=== PATIENT | male | born 1965 | race Caucasian/White ===

== ENCOUNTER 2018-05-26 08:56 | Emergency (ER) | payer BC, SELFPAY ==
[2018-05-26 09:01] VITALS: BP 176/106; PULSE 84; RESP 16; TEMP 36.7; O2SAT 97
--- NOTE | 2018-05-26 09:15 | W.ED.GENAD ---
Discharge Plan Disposition Patient Disposition: HOME Condition: Good Discharge Details Chief Complaint: EyeProblem Clinical Impression: Acute foreign body of left cornea Primary Care Provider: ANNE MARIELOCAL ED Provider: Ciro Villela Home Meds and New Rx's Prescriptions: No Action atorvastatin [Lipitor] 40 mg Tablet 40 mg PO DAILY RF: 0 metoprolol succinate [Toprol XL] 50 mg Tablet Extended Release 24 Hr 50 mg PO DAILY RF: 0 aspirin [Aspir-81] 81 mg Tablet,Delayed Release (Dr/Ec) 81 mg PO DAILY RF: 0 calcium carbonate [Calcium 600] 600 mg calcium (1,500 mg) Tablet 600 mg PO BID RF: 0 potassium 99 mg Tablet 99 mg PO DAILY RF: 0 amlodipine [Norvasc] 10 mg Tablet 10 mg PO DAILY RF: 0 metformin 1,000 mg Tablet 1,000 mg PO BID RF: 0 esomeprazole magnesium [Nexium] 40 mg Capsule,Delayed Release(Dr/Ec) 40 mg PO DAILY RF: 0 gabapentin 300 mg Capsule 300 mg PO QID RF: 0 hydrochlorothiazide 25 mg Tablet 25 mg PO DAILY RF: 0 irbesartan [Avapro] 300 mg Tablet 300 mg PO DAILY RF: 0 fenofibrate nanocrystallized [Tricor] 145 mg Tablet 145 mg PO DAILY RF: 0 ympbyjglnumc-oofm-avgnh acid [Centrum] 18-400 mg-mcg Tablet 1 tab PO QAM RF: 0 magnesium hydroxide 400 mg (170 mg) Tablet,Chewable 400 mg PO BID RF: 0 insulin glargine [Lantus Solostar U-100 Insulin] 100 unit/mL (3 mL) Insulin Pen 30 unit SUBCUT DAILY RF: 0 Discharge Instructions Instructions: Corneal Abrasion (ED) Additional Instructions: Follow-up with his [facility] eye care tomorrow or Sunday. It is best that you first call the office on Sunday morning at [phone]. Unable to get an appointment in 24-48 hours please call our care management team at [phone]. Return for increasing pain or any other concerns. Please use antibiotic ointment as provided 4 times daily to both eyes. Continue all regularly prescribed medications Medical Decision Making 52-year-old male with history of diabetes that is managed by his home care physicians in the state [facility]. 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 Foreign metallic object to the left eye 2 days ago. No evidence of significant injury to the right eye. There was left eye foreign metallic object present. Negative Yumiko sign. Patient was anesthetized, the majority of the metallic object was removed with question of residual rust ring. No significant change to vision. We will place him on antibiotic ointment bilaterally. We will ask that he follow-up [facility] for repeat evaluation tomorrow or Sunday. He will return the ED for any acute concerns. HPI General Mode of arrival: ambulatory. Date/Time Provider Initiated Documentation: 05/26/18 08:57. Limitations to Documentation: no limitations. Information obtained by: patient. History of Present Illness 52 year old M presents to the emergency department with the chief complaint of Left eye foreign object, described as moderate, Quality is described as aching, and is localized to the left and right. Patient started experiencing this day(s) and it has been constant. No relieving factors improve symptom(s), No exacerbating factors reported . Patient notes no other symptoms.. HPI Narrative: This is a 52-year-old male who lives in [facility]. He is staying at the [place] and then working in town. 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 He believes he had metallic foreign body to both eyes left greater than right 2 days ago and has had persistent predominantly left eye achy, constant, nonradiating pain. Increased clear tears. He has not had any pain with movement of the eye. No discharge. No significant change to vision; tetanus status up to date Related Data Home Medications Medication Instructions Recorded Confirmed amlodipine [Norvasc] 10 mg PO DAILY 05/26/18 05/26/18 aspirin [Aspir-81] 81 mg PO DAILY 05/26/18 05/26/18 atorvastatin [Lipitor] 40 mg PO DAILY 05/26/18 05/26/18 calcium carbonate [Calcium 600] 600 mg PO BID 05/26/18 05/26/18 esomeprazole magnesium [Nexium] 40 mg PO DAILY 05/26/18 05/26/18 fenofibrate nanocrystallized 145 mg PO DAILY 05/26/18 05/26/18 [Tricor] gabapentin 300 mg PO QID 05/26/18 05/26/18 hydrochlorothiazide 25 mg PO DAILY 05/26/18 05/26/18 insulin glargine [Lantus Solostar 30 unit SUBCUT DAILY 05/26/18 05/26/18 U-100 Insulin] irbesartan [Avapro] 300 mg PO DAILY 05/26/18 05/26/18 magnesium hydroxide 400 mg PO BID 05/26/18 05/26/18 metformin 1,000 mg PO BID 05/26/18 05/26/18 metoprolol succinate [Toprol XL] 50 mg PO DAILY 05/26/18 05/26/18 uazxcncjnyyp-ujed-wddym acid 1 tab PO QAM 05/26/18 05/26/18 [Centrum] potassium 99 mg PO DAILY 05/26/18 05/26/18 Allergies Allergy/AdvReac Type Severity Reaction Status Date / Time No Known Allergies Allergy Unverified 05/26/18 09:09 General Stated Complaint: EyeProblem CASSIE: 4 Review of Systems Review of Systems 8 systems reviewed and otherwise negative PFSH Social History Smoking/Tobacco Use Status: Never Exam Narrative Exam Narrative: GEN: awake, alert, oriented 3. Pleasant, well groomed, interactive. HEAD: Normocephalic, atraumatic ENT: Mucous membranes moist, oropharynx unremarkable, External ear exam unremarkable EYES: PERRL, EOMI. under fluorescein and slit lamp examination there is discrete question of right corneal abrasion without evidence of foreign body, no Yumiko sign. Left eye with inferotemporal foreign metallic object. Minimal corneal abrasions present, no Yumiko sign NECK: Full ROM, no FLEX, no menigismus CHEST/RESP: Nontender, clear to auscultation bilateral, no wheeze/rhonchi/rales CARDIOVASCULAR: RRR, no murmur, rub basil. 2+ Rad pulse bilateral EXT: Full ROM, no edema, no rash Neuro: Grossly normal neurologic exam, conversant, interactive. Psych: Speech fluent, thoughts congruent, affect normal Course Vital Signs Temperature 36.7 C 05/26/18 09:01 Pulse 84 05/26/18 09:01 Respiratory Rate 16 05/26/18 09:01 Blood Pressure 176/106 H 05/26/18 09:01 Pulse Oximetry 97 05/26/18 09:01 Temperature 36.7 C 05/26/18 09:01 Temperature Source Skin 05/26/18 09:01 Pulse 84 05/26/18 09:01 Respiratory Rate 16 05/26/18 09:01 Respiratory Effort Non-Labored 10/21/18 09:03 Blood Pressure 176/106 H 05/26/18 09:01 Pulse Oximetry 97 05/26/18 09:01 Pain Level 6 05/26/18 09:01
--- NOTE | 2018-05-26 09:21 | ED.GENADUL_ITS ---
Discharge Plan Disposition Patient Disposition: HOME Condition: Good Discharge Details Chief Complaint: EyeProblem Clinical Impression: Acute foreign body of left cornea Primary Care Provider: ANNE MARIELOCAL ED Provider: Ciro Villela Home Meds and New Rx's Prescriptions: No Action atorvastatin [Lipitor] 40 mg Tablet 40 mg PO DAILY RF: 0 metoprolol succinate [Toprol XL] 50 mg Tablet Extended Release 24 Hr 50 mg PO DAILY RF: 0 aspirin [Aspir-81] 81 mg Tablet,Delayed Release (Dr/Ec) 81 mg PO DAILY RF: 0 calcium carbonate [Calcium 600] 600 mg calcium (1,500 mg) Tablet 600 mg PO BID RF: 0 potassium 99 mg Tablet 99 mg PO DAILY RF: 0 amlodipine [Norvasc] 10 mg Tablet 10 mg PO DAILY RF: 0 metformin 1,000 mg Tablet 1,000 mg PO BID RF: 0 esomeprazole magnesium [Nexium] 40 mg Capsule,Delayed Release(Dr/Ec) 40 mg PO DAILY RF: 0 gabapentin 300 mg Capsule 300 mg PO QID RF: 0 hydrochlorothiazide 25 mg Tablet 25 mg PO DAILY RF: 0 irbesartan [Avapro] 300 mg Tablet 300 mg PO DAILY RF: 0 fenofibrate nanocrystallized [Tricor] 145 mg Tablet 145 mg PO DAILY RF: 0 jejtswsaivle-hfdg-hrmzx acid [Centrum] 18-400 mg-mcg Tablet 1 tab PO QAM RF: 0 magnesium hydroxide 400 mg (170 mg) Tablet,Chewable 400 mg PO BID RF: 0 insulin glargine [Lantus Solostar U-100 Insulin] 100 unit/mL (3 mL) Insulin Pen 30 unit SUBCUT DAILY RF: 0 Discharge Instructions Instructions: Corneal Abrasion (ED) Additional Instructions: Follow-up with his [facility] eye care tomorrow or Sunday. It is best that you first call the office on Sunday morning at [phone]. Unable to get an appointment in 24-48 hours please call our care management team at [phone]. Return for increasing pain or any other concerns. Please use antibiotic ointment as provided 4 times daily to both eyes. Continue all regularly prescribed medications Medical Decision Making 52-year-old male with history of diabetes that is managed by his home care physicians in the state [facility]. 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 Foreign metallic object to the left eye 2 days ago. No evidence of significant injury to the right eye. There was left eye foreign metallic object present. Negative Yumiko sign. Patient was anesthetized, the majority of the metallic object was removed with question of residual rust ring. No significant change to vision. We will place him on antibiotic ointment bilaterally. We will ask that he follow-up [facility] for repeat evaluation tomorrow or Sunday. He will return the ED for any acute concerns. HPI General Mode of arrival: ambulatory . Date/Time Provider Initiated Documentation: 05/26/18 08:57 . Limitations to Documentation: no limitations . Information obtained by: patient . History of Present Illness 52 year old M presents to the emergency department with the chief complaint of Left eye foreign object, described as moderate, Quality is described as aching, and is localized to the left and right. Patient started experiencing this day(s) and it has been constant. No relieving factors improve symptom(s), No exacerbating factors reported . Patient notes no other symptoms.. HPI Narrative: This is a 52-year-old male who lives in [facility]. He is staying at the [place] and then working in town. 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 He believes he had metallic foreign body to both eyes left greater than right 2 days ago and has had persistent predominantly left eye achy, constant, nonradiating pain. Increased clear tears. He has not had any pain with movement of the eye. No discharge. No significant change to vision; tetanus status up to date Related Data Home Medications Medication Instructions Recorded Confirmed amlodipine [Norvasc] 10 mg PO DAILY 05/26/18 05/26/18 aspirin [Aspir-81] 81 mg PO DAILY 05/26/18 05/26/18 atorvastatin [Lipitor] 40 mg PO DAILY 05/26/18 05/26/18 calcium carbonate [Calcium 600] 600 mg PO BID 05/26/18 05/26/18 esomeprazole magnesium [Nexium] 40 mg PO DAILY 05/26/18 05/26/18 fenofibrate nanocrystallized 145 mg PO DAILY 05/26/18 05/26/18 [Tricor] gabapentin 300 mg PO QID 05/26/18 05/26/18 hydrochlorothiazide 25 mg PO DAILY 05/26/18 05/26/18 insulin glargine [Lantus Solostar 30 unit SUBCUT DAILY 05/26/18 05/26/18 U-100 Insulin] irbesartan [Avapro] 300 mg PO DAILY 05/26/18 05/26/18 magnesium hydroxide 400 mg PO BID 05/26/18 05/26/18 metformin 1,000 mg PO BID 05/26/18 05/26/18 metoprolol succinate [Toprol XL] 50 mg PO DAILY 05/26/18 05/26/18 vtnyksmqktkj-qaep-vhenh acid 1 tab PO QAM 05/26/18 05/26/18 [Centrum] potassium 99 mg PO DAILY 05/26/18 05/26/18 Allergies Allergy/AdvReac Type Severity Reaction Status Date / Time No Known Allergies Allergy Unverified 05/26/18 09:09 General Stated Complaint: EyeProblem CASSIE: 4 Review of Systems Review of Systems 8 systems reviewed and otherwise negative PFSH Social History Smoking/Tobacco Use Status: Never Exam Narrative Exam Narrative: GEN: awake, alert, oriented 3. Pleasant, well groomed, interactive. HEAD: Normocephalic, atraumatic ENT: Mucous membranes moist, oropharynx unremarkable, External ear exam unremarkable EYES: PERRL, EOMI. under fluorescein and slit lamp examination there is discrete question of right corneal abrasion without evidence of foreign body, no Yumiko sign. Left eye with inferotemporal foreign metallic object. Minimal corneal abrasions present, no Yumiko sign NECK: Full ROM, no FLEX, no menigismus CHEST/RESP: Nontender, clear to auscultation bilateral, no wheeze/rhonchi/rales CARDIOVASCULAR: RRR, no murmur, rub basil. 2+ Rad pulse bilateral EXT: Full ROM, no edema, no rash Neuro: Grossly normal neurologic exam, conversant, interactive. Psych: Speech fluent, thoughts congruent, affect normal Course Vital Signs Temperature 36.7 C 05/26/18 09:01 Pulse 84 05/26/18 09:01 Respiratory Rate 16 05/26/18 09:01 Blood Pressure 176/106 H 05/26/18 09:01 Pulse Oximetry 97 05/26/18 09:01 Temperature 36.7 C 05/26/18 09:01 Temperature Source Skin 05/26/18 09:01 Pulse 84 05/26/18 09:01 Respiratory Rate 16 05/26/18 09:01 Respiratory Effort Non-Labored 10/21/18 09:03 Blood Pressure 176/106 H 05/26/18 09:01 Pulse Oximetry 97 05/26/18 09:01 Pain Level 6 05/26/18 09:01
[2018-05-26 09:29] VITALS: BP 158/89
[2018-05-26] MEDS: Erythromycin Ophth Oint 3.5 GM TUBE OP (09:32)
[2018-05-26 09:55] VITALS: BP 158/89
--- NOTE | 2018-05-27 08:12 | PDOC.ERCMPRO ---
Care Management Progress Note 05/27-Dr. Villela requested assistance with a [facility] f/u Sunday/Sunday for bassam diallo. Referral, demographics, and provider note faxed to [facility] this am.
--- NOTE | 2018-05-27 08:13 | CMPROGNOTE_ITS ---
Care Management Progress Note 05/27-Dr. Villela requested assistance with a [facility] f/u Sunday/ Sunday for bassam diallo. Referral, demographics, and provider note faxed to [facility] this am.
== END 2018-05-26 09:47 | disposition home or self-care (01) ==
PROVIDERS: Emergency Provider Emergency Medicine
DX: T15.02XA Foreign body in cornea, left eye, initial encounter (principal); S05.01XA Injury of conjunctiva and corneal abrasion without foreign body, right eye, initial encounter; Y99.0 Civilian activity done for income or pay; W31.1XXA Contact with metalworking machines, initial encounter; E11.9 Type 2 diabetes mellitus without complications; Z79.4 Long term (current) use of insulin; I10 Essential (primary) hypertension
CPT/HCPCS: 65222; 99283; 99281